=== PATIENT | male | born 1985 ===

== ENCOUNTER 2017-08-15 01:46 | Emergency (ER) | payer BC ==
[~2017-08-15] VITALS: Ht 188 cm; Wt 129.3 kg
[2017-08-15 02:24] LABS: SOURCE URINE
[2017-08-15 02:29] LABS: APPEARANCE CLEAR ((CLEAR)); BILIRUBIN NEGATIVE; BLOOD NEGATIVE; COLOR YELLOW ((YELLOW)); GLUCOSE (STRIP) NEGATIVE; KETONES NEGATIVE; LEUKOCYTES SMALL; NITRITE NEGATIVE; PROTEIN (STRIP) NEGATIVE; SPECIFIC GRAVITY 1.015 (1.000-1.030); UROBILINOGEN 0.2 MG/DL (0.2-1.0)
[2017-08-15 02:36] LABS: BACTERIA RARE /HPF; EPITHELIAL CELLS RARE /HPF; MUCUS TRACE /LPF; RED BLOOD CELLS 0-5 /HPF (0-5)
[2017-08-15 03:17] VITALS: BP 133/85
[2017-08-17 12:30] LABS: CHLAMYDIA TRACHOMATIS POSITIVE; NEISSERIA GONORRHOEAE NEGATIVE
== END 2017-08-15 03:18 | disposition home or self-care (01) ==
LOC: EME 01:46
PROVIDERS: Physician Assistant
DX: Z11.3 Encounter for screening for infections with a predominantly sexual mode of transmission (principal)
CPT/HCPCS: 81003; 87491; 87591; 99281; 99283; J0696